=== PATIENT | female | born 1995 | race American Indian/Alaskan Native ===

== ENCOUNTER 2021-07-25 11:38 | Emergency (ER) | payer SELFPAY ==
[2021-07-25 12:01] VITALS: BP 131/79
--- NOTE | 2021-07-25 12:17 | Emergency Department Report ---
HPI - General Chief Complaint: Skin/Abscess/Foreign Body Time Seen by Provider: 07/25/21 12:13 - HPI HPI: Triage Patient is a 25-year-old female presenting with earring stuck in the right ear. Patient states she recently had her ears pierced between 3 to 7 days ago and she slept on her right side and upon awakening she states the start of her earring pushed into the earlobe piercing. Upon arrival to triage the earring was removed by nurse prior to my evaluation at direct pressure and then replaced appropriately. Patient currently denies complaints. Denies history of fever ED Past Medical Hx - Past Medical History Previous Medical History?: No - Surgical History Past Surgical History?: No - Family History Family history: no significant - Social History Smoking Status: Unknown if ever smoked Substance Use Type: None ED Review of Systems ROS: Stated complaint: EARRING STUCK IN EAR Other details as noted in HPI Constitutional: denies: fever Physical Exam - Physical Exam Vital Signs: Vital Signs 07/25/21 11:58 Temperature 98.4 F Pulse Rate 112 H Respiratory 16 Rate Blood Pressure 131/79 O2 Sat by Pulse 97 Oximetry Physical Exam: GENERAL: The patient is well-developed well-nourished female sitting in chair not appearing to be in acute distress. [] HEENT: Normocephalic. Atraumatic. Extraocular motions are intact. Earlobes with mild edema bilaterally from recent piercing. No erythema to suggest cellulitis. NECK: Supple. Trachea midline CHEST/LUNGS: There is no respiratory distress noted. HEART/CARDIOVASCULAR: Regular. There is no tachycardia. There is no gallop rub or murmur. SKIN: There is no rash. There is mild edema of the earlobes bilaterally NEURO: The patient is awake, alert, and oriented. The patient is cooperative. GCS 15. The patient has normal speech. ED Course Vital Signs 07/25/21 11:58 Temperature 98.4 F Pulse Rate 112 H Respiratory 16 Rate Blood Pressure 131/79 O2 Sat by Pulse 97 Oximetry ED Medical Decision Making - Differential Diagnosis Foreign body earlobe Critical care attestation.: If time is entered above; I have spent that time in minutes in the direct care of this critically ill patient, excluding procedure time. ED Disposition Clinical Impression: Complication of right ear piercing Disposition: 01 HOME / SELF CARE / HOMELESS Is pt being admited?: No Does the pt Need Aspirin: No Condition: Stable Instructions: Wound Care, Adult Additional Instructions: Return to the emergency department should you develop worsening symptoms, inability to tolerate food or liquids, high fever or any other concerns Referrals: PRIMARY CARE, [Referring] - 3-5 Days Time of Disposition: 12:16
== END 2021-07-25 13:05 | disposition home or self-care (01) ==
LOC: ED 11:38
DX: S00.451A Superficial foreign body of right ear, initial encounter (principal); X58.XXXA Exposure to other specified factors, initial encounter; Y93.89 Activity, other specified; Y92.89 Other specified places as the place of occurrence of the external cause; Y99.8 Other external cause status
CPT/HCPCS: 99281

== ENCOUNTER 2021-12-11 11:41 | Emergency (ER) | payer OTHER ==
[2021-12-11] MEDS ORDERED: KETOROLAC 10 MG TAB PO ONE (14:24)
[2021-12-11] MEDS ORDERED: predniSONE 20 MG TAB PO ONE (14:24)
[2021-12-11 15:14] LABS: Bacteria,Urine 1+ /HPF (Negative); Bilirubin,Urine NEG (Negative); Blood,Urine NEG (Negative); Color,Urine Yellow (Yellow); Mucus,Urine FEW /HPF; Protein,Urine <15 mg/dL mg/dL (Negative); Urobilinogen,Urine < 2.0 mg/dL (<2.0)
[2021-12-11 15:16] LABS: HCG Qualitative,Urine Negative (Negative)
--- NOTE | 2021-12-11 15:46 | Emergency Department Report ---
ED Abdominal Pain HPI - General Chief Complaint: Abdominal Pain Stated Complaint: STOMACH PAINS Time Seen by Provider: 12/11/21 13:58 Source: patient Mode of arrival: Ambulatory Limitations: No Limitations - History of Present Illness Initial Comments: 26-year-old black female with no past medical history presents to the emergency department for evaluation of 1 month history of abdominal and lower back pain. She states that pain has been intermittent but over the past couple of week pain has been happening more often. She denies any trauma or injury but states that she has worked out 1 or 2 times right before pain started. She states that pain is worse with lying and certain movements and is for on a 10 point scale at its worst. She denies fever, dysuria, nausea, vomiting, and vaginal discharge. Last menstrual period was November 18, 2021. MD Complaint: abdominal pain -: Gradual, month(s) (1) Location: diffuse Radiation: none Migration to: no migration Severity scale (0 -10): 4 Quality: aching Consistency: intermittent Worsens With: movement, other (Lying) Associated Symptoms: denies: nausea, vomiting, diarrhea, fever, chills, dysuria, hematemesis, hematochezia, melena, hematuria, anorexia, syncope - Related Data LMP Date: 11/18/21 Previous Rx's Medication Instructions Recorded Last Taken Type Naproxen [Naprosyn] 500 mg PO BID #14 tab 12/11/21 Unknown Rx Allergies Allergy/AdvReac Type Severity Reaction Status Date / Time No Known Allergies Allergy Verified 12/11/21 14:59 ED Review of Systems ROS: Stated complaint: STOMACH PAINS Other details as noted in HPI Comment: All other systems reviewed and negative Constitutional: denies: chills, fever ENT: denies: congestion Respiratory: denies: cough, orthopnea, shortness of breath, SOB with exertion, SOB at rest, stridor, wheezing Cardiovascular: denies: chest pain, palpitations, dyspnea on exertion, orthopnea, edema, syncope, paroxysmal nocturnal dyspnea Gastrointestinal: abdominal pain. denies: nausea, vomiting, diarrhea, constipation, hematemesis, melena, hematochezia Genitourinary: denies: urgency, dysuria, frequency, hematuria, discharge Neurological: denies: headache, weakness, numbness, paresthesias, confusion, abnormal gait, vertigo ED Past Medical Hx - Social History Smoking Status: Unknown if ever smoked Substance Use Type: None - Medications Home Medications: Home Medications Medication Instructions Recorded Confirmed Last Taken Type Naproxen [Naprosyn] 500 mg PO BID #14 tab 12/11/21 Unknown Rx ED Physical Exam - General Limitations: No Limitations General appearance: alert, in no apparent distress - Head Head exam: Present: atraumatic, normocephalic - Eye Eye exam: Present: normal appearance. Absent: conjunctival injection - Neck Neck exam: Present: normal inspection, full ROM. Absent: tenderness, lymphadenopathy - Respiratory Respiratory exam: Present: normal lung sounds bilaterally, chest wall tenderness. Absent: respiratory distress, wheezes, rales, rhonchi, stridor - Cardiovascular Cardiovascular Exam: Present: regular rate, normal heart sounds - GI/Abdominal GI/Abdominal exam: Present: soft, tenderness (To touch over the entire abdomen upper thighs and chest area), normal bowel sounds. Absent: distended, guarding, rebound, rigid - Extremities Exam Extremities exam: Present: normal inspection, full ROM, tenderness, normal capillary refill. Absent: pedal edema, joint swelling, calf tenderness - Back Exam Back exam: Present: normal inspection. Absent: tenderness, CVA tenderness (R), CVA tenderness (L), paraspinal tenderness, vertebral tenderness - Neurological Exam Neurological exam: Present: alert, oriented X3, normal gait - Psychiatric Psychiatric exam: Present: normal affect, normal mood - Skin Skin exam: Present: warm, dry, intact, normal color ED Course Vital Signs 12/11/21 12/11/21 12/11/21 12:24 14:56 15:59 Temperature 98.3 F 98.8 F 98.6 F Pulse Rate 83 73 69 Respiratory 18 20 16 Rate Blood Pressure 115/67 124/79 120/78 [Right] O2 Sat by Pulse 99 100 98 Oximetry - Reevaluation(s) Reevaluation #1: 12/11/21 15:45 Patient states that pain improved after medication, but she is requesting an ultrasound. Patient notified that she had a negative test no need for an ultrasound at this time and follow-up with OB if she would like to pursue that request further. ED Medical Decision Making - Medical Decision Making 26-year-old black female with no past medical history presents to the emergency department for evaluation of 1 month history of abdominal and lower back pain. She states that pain has been intermittent but over the past couple of week pain has been happening more often. She denies any trauma or injury but states that she has worked out 1 or 2 times right before pain started. She states that pain is worse with lying and certain movements and is for on a 10 point scale at its worst. She denies fever, dysuria, nausea, vomiting, and vaginal discharge. Last menstrual period was November 18, 2021. Urine negative for any UTI and . Exam consistent with musculoskeletal pain only, and pain was improved significantly after 1 dose of Toradol. Patient be discharged home with prescription for naproxen to take twice a day to manage musculoskeletal pain and advised to follow-up with primary care provider if worsening symptoms. She is advised to return to the emergency department for any concerning symptoms. She verbalizes understanding of and agreement with plan of care. Critical care attestation.: If time is entered above; I have spent that time in minutes in the direct care of this critically ill patient, excluding procedure time. ED Disposition Clinical Impression: Myalgia Disposition: 01 HOME / SELF CARE / HOMELESS Is pt being admited?: No Does the pt Need Aspirin: No Condition: Stable Instructions: Musculoskeletal Pain, Abdominal Pain (ED) Additional Instructions: Take medications as prescribed. Follow-up with primary care provider if no improvement or worsening symptoms. Return to the emergency department as needed. Prescriptions: Naproxen [Naprosyn] 500 mg PO BID #14 tab Referrals: KAYLAN PALMER [Other] - 3-5 Days Forms: Work/School Release Form(ED) Time of Disposition: 15:45
[2021-12-11 16:00] VITALS: BP 120/78
== END 2021-12-11 16:00 | disposition home or self-care (01) ==
LOC: ED 11:41
DX: M79.10 Myalgia, unspecified site (principal)
CPT/HCPCS: 81001; 81025; 99283